=== PATIENT | male | born 1995 | race Caucasian/White ===

== ENCOUNTER 2017-10-25 21:47 | Emergency (ER) | payer OTHER ==
--- NOTE | 2017-10-25 22:33 | RAD ---
RIGHT FOOT THREE VIEWS: 10/25/17 HISTORY: 22-year-old male with history of laceration on the top of the foot after dropping a glass. There is some soft tissue swelling over the dorsal aspect of the foot particularly the forefoot regio n. No evidence for fracture, dislocation or abnormal opaque foreign body. IMPRESSION: Soft tissue swelling over the top of the foot. No fracture or dislocation or overt foreign body. POS: [facility]
[2017-10-25] MEDS ORDERED: Adacel (T-DAP) 0.5 ML VIAL ONE (22:57)
== END 2017-10-25 23:22 | disposition home or self-care (01) ==
LOC: ERS 21:47
DX: S91.111A Laceration without foreign body of right great toe without damage to nail, initial encounter (principal); J45.909 Unspecified asthma, uncomplicated; Z79.899 Other long term (current) drug therapy; W25.XXXA Contact with sharp glass, initial encounter
CPT/HCPCS: 12001; 90471; 90715